=== PATIENT | female | born 1970 | race African-American/Black ===

== ENCOUNTER 2017-08-02 12:56 | Emergency (ER) | payer MEDICAID, OTHER ==
[~2017-08-02] VITALS: Ht 162.6 cm; Wt 108.0 kg
[2017-08-02 13:00] VITALS: BP_SYST 119
[2017-08-02] MEDS ORDERED: NACL 0.9% 1,000 ML IV ONE ×3 (13:15→13:45)
[2017-08-02] MEDS ORDERED: MORPHINE 2 MG/ML INJ. SYRINGE IVP ONE (13:15)
[2017-08-02 13:35] LABS: BASOPHILS % (AUTO) 0.6 % (0.0-2.0); EOSINOPHILS # (AUTO) 0.2 K/uL (0.0-0.4); EOSINOPHILS % (AUTO) 2.7 % (0.0-4.0); HEMATOCRIT 34.8 % (36-48); HEMOGLOBIN 11.2 g/dL (12.0-16.0); LYMPHOCYTES % (AUTO) 25.7 % (20.5-51.5); MEAN CORPUSCULAR HEMOGLOBIN 27 pg (27-31); MEAN CORPUSCULAR HGB CONC 32 % (32-36); MEAN CORPUSCULAR VOLUME 84 fL (79.0-98.0); MONOCYTES # (AUTO) 0.6 K/uL (0.0-1.0); MONOCYTES % (AUTO) 7.9 % (1.7-9.3); NEUTROPHILS # (AUTO) 5.1 K/uL (1.8-7.7); NEUTROPHILS % (AUTO) 63.1 % (40.0-70.0); PLATELET COUNT (AUTO) 513 K/uL (130-430); RED BLOOD CELL COUNT(AUTO) 4.13 MIL/uL (4.2-6.2); RED CELL DISTRIBUTION WIDTH 16.4 % (9.0-15.0); WHITE BLOOD COUNT (AUTO) 7.9 K/uL (4.8-10.8)
[2017-08-02 13:41] LABS: ANION GAP 5 (5-15); CHLORIDE 104 mmol/L (98-107); GLUCOSE 102 mg/dL (70-99); POTASSIUM 4.1 mmol/L (3.5-5.1); SODIUM SERUM 139 mmol/L (136-145); UREA NITROGEN, BLOOD 17 mg/dL (8-21)
[2017-08-02] MEDS ORDERED: LORazepam 2 MG/ML VIAL (FOR ER USE) IVP ONE (13:45)
[2017-08-02 13:54] LABS: ALANINE AMINOTRANSFERASE 14 U/L (12-78); ALBUMIN 3.4 g/dL (3.4-4.8); ASPARTATE AMINOTRANSFERASE 16 U/L (10-37); CALCIUM 9.1 mg/dL (8.4-11.0); TOTAL BILIRUBIN 0.3 mg/dL (0.0-1.0)
[2017-08-02 13:58] LABS: ACETAMINOPHEN < 1 ug/mL (1-30); GFR AFRICAN AMERICAN 87 mL/min (>90)
[2017-08-02 14:05] LABS: ALCOHOL, BLOOD < 3 mg/dL (<10)
[2017-08-02 15:10] VITALS: BP_SYST 114
== END 2017-08-02 15:10 | disposition home or self-care (01) ==
LOC: SED 12:56
DX: R56.9 Unspecified convulsions (principal); D86.9 Sarcoidosis, unspecified; M79.7 Fibromyalgia; Z88.2 Allergy status to sulfonamides; Z88.5 Allergy status to narcotic agent; Z90.710 Acquired absence of both cervix and uterus
CPT/HCPCS: 36415; 70450; 80053; 85025; 93005; 96361; 96374; 99285; G0480; G0481; G0482; J2270; J7030